=== PATIENT | male | born 1935 | race Caucasian/White ===

== ENCOUNTER 2022-06-07 10:29 | Inpatient (IN) | payer MEDICARE, BC ==
[2022-06-07] MEDS ORDERED: Magnesium 2 GM/50 ML BAG (IN WATER) ONE (12:08)
[2022-06-07] MEDS ORDERED: Vancomycin 1 GM VIAL ONE (12:19)
[2022-06-07] MEDS ORDERED: Lorazepam 2 MG/ML VIAL ONE (12:35)
[2022-06-07] MEDS ORDERED: Haloperidol Lactate 5 MG/ML VIAL ONE (12:35)
[2022-06-07] MEDS ORDERED: Cefepime 2 GM VIAL ONE (12:53)
[2022-06-07] MEDS ORDERED: Bisacodyl 5 MG TAB PO PRN (14:51)
[2022-06-07] MEDS ORDERED: Bisacodyl 10 MG SUPP PR PRN (14:51)
[2022-06-07] MEDS ORDERED: Acetaminophen 650 MG Suppository PR PRN (14:51)
[2022-06-07] MEDS ORDERED: Communication Order-Pharmacy FS PRN (14:53)
[2022-06-07] MEDS ORDERED: Sodium Chloride 0.9% 1,000 ML IV SCH (15:00)
[2022-06-07 15:51] LABS: Actual Bicarbonate (HCO3v) 21 mEq/L (22-28); Base Excess -3.9 mEq/L (-2.0 to +3.0); Calcium, Ionized (venous) 1.05 mmol/L (1.16-1.32); Chloride (VBG) 109 mmol/L (98-106); Hemoglobin (Hb) 11.1 g/dL (12.6-17.4); Potassium (VBG) 3.62 mmol/L (3.70-5.30); Puncture Site Other Site; RapidComm Collect By CBN; Sodium 138.6 mmol/L (133-146); pH (venous) 7.36 (7.32-7.43)
[2022-06-07 16:02] VITALS: BMI 31.4
[2022-06-07] MEDS ORDERED: Furosemide 20 MG/2 ML VIAL SLOW IVP SCH (17:00)
[2022-06-07] MEDS ORDERED: FLU VACC QS2022-23(65YR UP)/PF 240 MCG/0.7 ML SYRINGE IM ONE (18:00)
[2022-06-07] MEDS: Ipratropium/Albuterol 3 ML NEB NEB SCH (19:49)
[2022-06-07] MEDS: Enoxaparin 120 MG/0.8 ML SYRINGE SC SCH (20:20)
[2022-06-07] MEDS: Famotidine/PF 20 mg/2ml Vial SLOW IVP SCH (20:21)
[2022-06-07] MEDS: methylPREDNISolone Sod Succ 40 MG VIAL IVP SCH (22:01)
[2022-06-08] MEDS: Ipratropium/Albuterol 3 ML NEB NEB SCH ×4 (00:06→20:25)
[2022-06-08 04:36] LABS: #Monocytes 0.2 10x3/uL (0.0-1.1); #Neutrophils 12.2 10x3/uL (1.5-8.4); %Basophils 0.2 % (0.0-2.0); %Lymphocytes 3.9 % (18.0-47.0); %Monocytes 1.6 % (0.0-10.0); %Neutrophils 93.1 % (40.0-75.0); Hemoglobin 10.6 g/dL (13.5-17.5); Mean Corpuscular Hemoglobin 26.1 pg (27.0-33.0); Mean Corpuscular Volume 84.2 fl (81.2-95.1); Mean Platelet Volume 10.8 fl (7.4-10.4); Platelet Count 197 10x3/uL (150-450); RBC Distribution Width 15.2 % (11.5-14.5); Red Blood Cell (RBC) Count 4.06 10x6/uL (4.32-5.72); White Blood Cell (WBC) Count 13.1 10x3/uL (3.5-10.5)
[2022-06-08 04:44] LABS: Anion Gap 14 mmol/L (10-20); BUN (Urea Nitrogen) 24 mg/dL (8.4-25.7); Calc. Creatinine Clearance 120 mL/min (70-130); Calcium 8.3 mg/dL (7.8-10.44); Carbon Dioxide 20 mmol/L (23-31); Chloride 110 mmol/L (98-107); Estimated GFR 92; Glucose 134 mg/dL (83-110); Magnesium 2.1 mg/dL (1.6-2.6); Potassium 3.8 mmol/L (3.5-5.1); Sodium 140 mmol/L (136-145)
[2022-06-08] MEDS: Famotidine/PF 20 mg/2ml Vial SLOW IVP SCH ×2 (07:42→21:04)
[2022-06-08] MEDS: Furosemide 20 MG/2 ML VIAL SLOW IVP SCH (07:42)
[2022-06-08] MEDS: methylPREDNISolone Sod Succ 40 MG VIAL IVP SCH ×3 (07:42→21:04)
[2022-06-08] MEDS: Enoxaparin 120 MG/0.8 ML SYRINGE SC SCH ×3 (07:42→21:05)
[2022-06-08 09:50] LABS: Strep pneumo Urine Ag NEGATIVE (NEGATIVE)
[2022-06-08 09:51] LABS: Legionella Urinary Ag Negative (Negative)
[2022-06-08] MEDS: cefTRIAXone\\ROCEPHIN 1 GM in Sodium Chloride 0.9% 100 ML IVPB SCH (16:14)
[2022-06-08] MEDS: Azithromycin 500 MG in Sodium Chloride 0.9% 250 ML 250 ML IVPB SCH (16:14)
[2022-06-08] MEDS: Metoprolol Tartrate 5 MG/5 ML VIAL IVP SCH (18:33)
[2022-06-08] MEDS: diphenhydrAMINE 30 GM TUBE TOP SCH (21:05)
[2022-06-09] MEDS: Metoprolol Tartrate 5 MG/5 ML VIAL IVP SCH ×4 (00:08→17:16)
[2022-06-09] MEDS: Ipratropium/Albuterol 3 ML NEB NEB SCH ×4 (01:50→20:04)
[2022-06-09] MEDS: methylPREDNISolone Sod Succ 40 MG VIAL IVP SCH ×3 (05:00→21:08)
[2022-06-09] MEDS: diphenhydrAMINE 30 GM TUBE TOP SCH ×2 (08:06→21:08)
[2022-06-09] MEDS: Enoxaparin 120 MG/0.8 ML SYRINGE SC SCH (08:06)
[2022-06-09] MEDS: Famotidine/PF 20 mg/2ml Vial SLOW IVP SCH ×2 (08:06→21:08)
[2022-06-09] MEDS: Furosemide 20 MG/2 ML VIAL SLOW IVP SCH (08:06)
[2022-06-09] MEDS ORDERED: Metoprolol Tartrate 5 MG/5 ML VIAL IVP SCH (12:45)
[2022-06-09] MEDS ORDERED: Digoxin 0.5 MG/2 ML AMP SLOW IVP SCH (15:00)
[2022-06-09] MEDS ORDERED: Metoprolol Tartrate 25 MG TAB PO SCH (15:00)
[2022-06-09] MEDS: Azithromycin 500 MG in Sodium Chloride 0.9% 250 ML 250 ML IVPB SCH (15:08)
[2022-06-09] MEDS: cefTRIAXone\\ROCEPHIN 1 GM in Sodium Chloride 0.9% 100 ML IVPB SCH (15:10)
[2022-06-09] MEDS: Metoprolol Tartrate 50 MG TAB PO SCH (21:08)
[2022-06-10] MEDS: Metoprolol Tartrate 5 MG/5 ML VIAL IVP SCH ×4 (01:02→13:14)
[2022-06-10] MEDS: Ipratropium/Albuterol 3 ML NEB NEB SCH ×4 (01:31→21:08)
[2022-06-10] MEDS: methylPREDNISolone Sod Succ 40 MG VIAL IVP SCH ×3 (07:02→21:44)
[2022-06-10] MEDS ORDERED: Digoxin 0.05 MG/ML Oral Solution PO SCH (09:00)
[2022-06-10] MEDS: diphenhydrAMINE 30 GM TUBE TOP SCH ×2 (09:21→21:44)
[2022-06-10] MEDS: Famotidine/PF 20 mg/2ml Vial SLOW IVP SCH ×3 (09:23→21:44)
[2022-06-10] MEDS: Metoprolol Tartrate 50 MG TAB PO SCH ×2 (09:23→21:39)
[2022-06-10] MEDS: Furosemide 20 MG/2 ML VIAL SLOW IVP SCH (09:24)
[2022-06-10] MEDS: Azithromycin 500 MG in Sodium Chloride 0.9% 250 ML 250 ML IVPB SCH (13:06)
[2022-06-10] MEDS: cefTRIAXone\\ROCEPHIN 1 GM in Sodium Chloride 0.9% 100 ML IVPB SCH (13:06)
[2022-06-10] MEDS ORDERED: Digoxin 0.25 MG TAB PO SCH (15:51)
[2022-06-10] MEDS: Acetaminophen 325 MG TAB PO PRN (21:39)
[2022-06-11] MEDS: Acetaminophen 325 MG TAB PO PRN ×3 (01:10→23:40)
[2022-06-11] MEDS: Ipratropium/Albuterol 3 ML NEB NEB SCH ×4 (01:25→18:59)
[2022-06-11] MEDS: methylPREDNISolone Sod Succ 40 MG VIAL IVP SCH ×2 (02:39→11:11)
[2022-06-11] MEDS: Metoprolol Tartrate 5 MG/5 ML VIAL IVP SCH ×4 (02:39→11:12)
[2022-06-11] MEDS: Metoprolol Tartrate 50 MG TAB PO SCH ×2 (08:15→20:23)
[2022-06-11] MEDS: Aspirin 81 mg Enteric Coated Tablet PO SCH (08:15)
[2022-06-11] MEDS: Famotidine/PF 20 mg/2ml Vial SLOW IVP SCH (08:15)
[2022-06-11] MEDS: Furosemide 20 MG/2 ML VIAL SLOW IVP SCH (08:15)
[2022-06-11] MEDS: diphenhydrAMINE 30 GM TUBE TOP SCH (08:16)
[2022-06-11] MEDS: Azithromycin 500 MG in Sodium Chloride 0.9% 250 ML 250 ML IVPB SCH (11:12)
[2022-06-11] MEDS: cefTRIAXone\\ROCEPHIN 1 GM in Sodium Chloride 0.9% 100 ML IVPB SCH (11:12)
[2022-06-12] MEDS: Metoprolol Tartrate 5 MG/5 ML VIAL IVP SCH ×3 (01:45→11:39)
[2022-06-12] MEDS: diphenhydrAMINE 30 GM TUBE TOP SCH ×3 (01:45→21:46)
[2022-06-12] MEDS: Famotidine/PF 20 mg/2ml Vial SLOW IVP SCH ×3 (01:45→21:58)
[2022-06-12] MEDS: methylPREDNISolone Sod Succ 40 MG VIAL IVP SCH ×4 (01:45→21:58)
[2022-06-12] MEDS: Ipratropium/Albuterol 3 ML NEB NEB SCH ×4 (01:59→19:21)
[2022-06-12] MEDS: Aspirin 81 mg Enteric Coated Tablet PO SCH (08:03)
[2022-06-12] MEDS: Furosemide 20 MG/2 ML VIAL SLOW IVP SCH (08:03)
[2022-06-12] MEDS: Acetaminophen 325 MG TAB PO PRN ×2 (08:03→21:45)
[2022-06-12] MEDS: Metoprolol Tartrate 50 MG TAB PO SCH ×2 (08:03→21:46)
[2022-06-12] MEDS: cefTRIAXone\\ROCEPHIN 1 GM in Sodium Chloride 0.9% 100 ML IVPB SCH (11:40)
[2022-06-12] MEDS: Azithromycin 500 MG in Sodium Chloride 0.9% 250 ML 250 ML IVPB SCH (11:40)
[2022-06-12 23:24] VITALS: TEMP 98
[2022-06-13] MEDS: Metoprolol Tartrate 5 MG/5 ML VIAL IVP SCH ×3 (00:20→11:19)
[2022-06-13] MEDS: Ipratropium/Albuterol 3 ML NEB NEB SCH ×3 (05:07→13:00)
[2022-06-13] MEDS: methylPREDNISolone Sod Succ 40 MG VIAL IVP SCH (05:26)
[2022-06-13 06:22] VITALS: BP 165/66
[2022-06-13] MEDS: Furosemide 20 MG/2 ML VIAL SLOW IVP SCH (08:48)
[2022-06-13] MEDS: Famotidine/PF 20 mg/2ml Vial SLOW IVP SCH (08:48)
[2022-06-13] MEDS: Metoprolol Tartrate 50 MG TAB PO SCH (09:23)
[2022-06-13] MEDS: Aspirin 81 mg Enteric Coated Tablet PO SCH (09:23)
[2022-06-13] MEDS: diphenhydrAMINE 30 GM TUBE TOP SCH (09:23)
[2022-06-13] MEDS: HYDROcodone/Acetaminophen 10/325 mg Tablet PO SCH ×2 (11:28→12:54)
[2022-06-13] MEDS ORDERED: Lorazepam 2 MG/ML VIAL IM SCH (12:45)
== END 2022-06-13 13:00 | DRG 871 ==
LOC: CSHERS 10:29 → CSHIMCU 14:56 → CSHTELE 06-09 11:11
PROVIDERS: ADMIT Hospitalist; ATTEND Family Medicine
DX: A41.9 Sepsis, unspecified organism (principal); J18.9 Pneumonia, unspecified organism; J96.01 Acute respiratory failure with hypoxia; J44.0 Chronic obstructive pulmonary disease with (acute) lower respiratory infection; F02.811 Dementia in other diseases classified elsewhere, unspecified severity, with agitation; I69.354 Hemiplegia and hemiparesis following cerebral infarction affecting left non-dominant side; Z20.822 Contact with and (suspected) exposure to COVID-19; I48.91 Unspecified atrial fibrillation; M19.90 Unspecified osteoarthritis, unspecified site; E78.5 Hyperlipidemia, unspecified; I10 Essential (primary) hypertension; F32.A Depression, unspecified; G30.9 Alzheimer's disease, unspecified; G40.909 Epilepsy, unspecified, not intractable, without status epilepticus; Z66 Do not resuscitate; R13.10 Dysphagia, unspecified; I69.391 Dysphagia following cerebral infarction; Z79.82 Long term (current) use of aspirin; Z79.899 Other long term (current) drug therapy; Z86.16 Personal history of COVID-19; Z87.891 Personal history of nicotine dependence; R07.9 Chest pain, unspecified; I51.7 Cardiomegaly; I51.9 Heart disease, unspecified
CPT/HCPCS: 36415; 80048; 82805; 83735; 84443; 85025; 87449; 87899; 93005; 93306; 94640; 94760; 94762; 96365; 96366; 96367; 96375; J0456; J0692; J0696; J1630; J1650; J1940; J2060; J2920; J3370; J3475; J3490; J7050; J7620; S0028